=== PATIENT | female | born 1990 | race Hispanic/Latino ===

== ENCOUNTER 2020-08-19 07:52 | Outpatient (CLI) | payer OTHER | END 2020-08-19 07:53 | disposition home or self-care (01) | LOC: BICULT 07:52 | PROVIDERS: ATTEND Family Medicine | DX: Z34.82 Encounter for supervision of other normal pregnancy, second trimester (principal); O44.42 Low lying placenta NOS or without hemorrhage, second trimester; O32.1XX0 Maternal care for breech presentation, not applicable or unspecified; Z3A.19 19 weeks gestation of pregnancy | CPT/HCPCS: 76805 ==